=== PATIENT | female | born 1970 | race African-American/Black ===

== ENCOUNTER 2018-12-02 20:27 | Emergency (ER) | payer OTHER ==
[2018-12-02] MEDS ORDERED: IBUPROFEN 600 MG TABLET (FP) PO ONE ×2 (20:47→20:57)
[2018-12-02 20:48] VITALS: BP 136/79; PULSE 90; TEMP 98.3; BMI 34.5
--- NOTE | 2018-12-02 21:14 | PDOC ---
Documentation entered by Jesus Dailey SCRIBE, acting as scribe for Phyllis Pineda MD. Phyllis Pineda MD: This documentation has been prepared by the sAim perdue Elijah, SCRIBE, under my direction and personally reviewed by me in its entirety. I confirm that the documentation accurately reflects all work, treatment, procedures, and medical decision making performed by me. History of Present Illness - General Chief Complaint: Sore Throat Stated Complaint: L EAR/THROAT PAIN History Source: Patient Exam Limitations: No Limitations - History of Present Illness Initial Comments: 12/02/18 20:47 The patient is a 48 year old female with no reported significant PMH presenting to the ED with intermittent left ear pain that radiates down to her throat x 4 days. Patient notes that this pain is unlike any other pain she has had in the past, she took naproxen for pain yesterday, with some relief and had not taken additional. Patient also notes that she did not take anything today. +sore throat and neck pain, +hoarse voice no current allergies or environmental triggers. pt works as [employer], she sang prior to presentation. denies trauma or exertion. no swelling or palp lymph nodes. no difficulty swallowing or odynophagia/ dysphagia. Denies fever, chills, ear discharge/hearing or visual changes, chest pain, SOB, cough or congestion, additional respiratory symptoms, palpitation, dizziness, weakness, N, V, D, abdominal pain, bladder and bowel problems, leg swelling, No sick contacts or travel. No new changes in medications. Allergies: Cefazolin Social history: Lives with family. No tobacco, ETOH or drug use. 12/02/18 21:06 12/02/18 21:10 Past History - Past Medical History Allergies/Adverse Reactions: Allergies Allergy/AdvReac Type Severity Reaction Status Date / Time cefazolin [From Ancef] AdvReac Verified 12/02/18 20:40 Home Medications: Ambulatory Orders NK [No Known Home Medication] 12/02/18 Review of Systems - Review of Systems Comments:: 12/02/18 21:02 Constitutional: no fevers or chills. HEENT: +Pain in Left Ear. +sore throat. +neck pain. No change in vision or hearing. No ear discharge. No mouth pain or sores.. No difficulty swallowing. No congestion. CVS: no cp or syncope. Resp: no sob. No cough. Gastrointestinal: no abdominal pain, nausea or vomiting. MUSCULOSKELETAL: No joint pain and swelling. No neck or back pain. SKIN: no redness or skin changes, no discharge, no rash. No wounds. Hematologic: no easy bruising/bleeding. Lymph: no lymphadenopathy. NEUROLOGIC: No headache, dizziness, LOC or altered mental status. Allergic/Immunologic: no seasonal allergies All other systems reviewed and negative, or as documented in HPI. 12/02/18 21:09 12/02/18 21:29 *Physical Exam - Vital Signs Last Vital Signs Temp Pulse Resp BP Pulse Ox 98.3 F 90 14 136/79 98 12/02/18 20:28 12/02/18 20:28 12/02/18 20:28 12/02/18 20:28 12/02/18 20:28 - Physical Exam Comments: 12/02/18 21:03 General: Well appearing, awake and alert, NAD. HEENT: NCAT, PERRL, EOMI, clear conjunctiva, anicteric, moist mucus membranes, clear oropharynx. Airway patent, normal phonation. no tonsillar hypertrophy or erythema. Uvula midline. No sinus tenderness to percussion, TM clear bilaterally , no pinna tenderness to manipulation no mastoid tenderness. Neck: neck supple, FROM Resp: CTAB, normal and even respirations, no respiratory distress CVS: RRR, no murmurs, 2+ peripheral pulses throughout, no peripheral edema Abdomen: soft, NTND, no peritoneal signs. Back: nontender, normal inspection and ROM MSK: no edema, POWELL x4, ROM intact. Neuro: alert, no focal neuro deficits. Psych: calm and cooperative Skin: warm and well perfused, cap refill <2 sec, normal color, no rash 12/02/18 21:10 12/02/18 21:29 ED Treatment Course - Medications Given in the ED: ED Medications Discontinued Medications Generic Name Dose Route Start Last Admin Trade Name Freq PRN Reason Stop Dose Admin Ibuprofen 600 mg 12/02/18 20:47 12/02/18 20:59 Motrin - PO 12/02/18 20:48 600 mg ONCE ONE Administration Medical Decision Making - Medical Decision Making 12/02/18 21:11 Vital signs reviewed, wnl. no fever or systemic sx ddx. pharyngitis, strep. AOM, viral otitis media. vocal cord strain. viral infection strep test_neg, f/u culture no other systemic findings, maintaining ariway, no respiratory distress. could be vocal cord strain vs viral infection. no indication for abx ENT followup given Pt to be discharged in stable condition. Patient and family made aware of clinical impression, treatment recommendations and disposition plan, return precautions discussed (including but not limited to new or persistent/worsening symptoms, pain, fevers, or signs of infection, chest pain, respiratory distress , inability to tolerate oral intake, dehydration, syncope, or neurologic changes ). Follow up with PMD and/or ENT specialist as recommended, follow up information provided, take medications as instructed for duration of time. continue with supportive care, avoid triggers and precipitants. All questions answered to patient's satisfaction and expressed understanding and comfort with this. At the time of discharge, the patient is alert, clinically improved, tolerating po and verbalizes understanding of instructions, satisfied with the care received and felt comfortable with the plan. Patient does not suffer from an acute life-threatening medical condition at this time and is safe for outpatient follow-up. 12/02/18 21:28 *DC/Admit/Observation/Transfer Diagnosis at time of Disposition: Sore throat, Ear pain - Discharge Dispostion Disposition: HOME Condition at time of disposition: Good Decision to Admit order: No - Referrals Referrals: Gregorio Anderson MD [Staff Physician] - - Patient Instructions Printed Discharge Instructions: Sore Throat, DI for Ear Pain-Adult Additional Instructions: 1) Please follow-up with your primary care doctor in the next 1-2 days. Please call tomorrow for for any urgent issues. you are also given referral for ENT specialist for the ear and throat pain 2) You were given a copy of the tests performed today. Please bring the results with you and review them with your primary care doctor. Your laboratory results were normal, neg for strep infection. no indication for antibiotics, as your symptoms could also be viral. follow up on the throat culture. 3) If you have any worsening of symptoms or any other concerns please return to the ED immediately. Return if worsening symptoms including fevers, headache, vomiting, visual or hearing disturbances, abdominal pain, chest pain, shortness of breath, syncope, dehydration, inability to take things by mouth/vomiting, worsening neck/ear pain, altered mental status, or worsening concerning symptoms. Stay well hydrated and rest adequately. salt water gargles, lemon and ashley tea to soothe the throat. Make an appointment. If you cannot follow-up with your primary care doctor please return to the ED - Post Discharge Activity
== END 2018-12-02 21:33 | disposition home or self-care (01) ==
LOC: FER 20:27
DX: J02.9 Acute pharyngitis, unspecified (principal); H92.02 Otalgia, left ear
CPT/HCPCS: 87070; 87880; 99282-25

== ENCOUNTER 2019-05-17 19:22 | Emergency (ER) | payer OTHER ==
[2019-05-17 19:31] VITALS: BP 153/95; PULSE 77; TEMP 98.2; BMI 34.7
--- NOTE | 2019-05-17 21:32 | PDOC ---
Documentation entered by Cassandra Overton SCRIBE, acting as scribe for Kirsten Jaramillo MD. Kirsten Jaramillo MD: This documentation has been prepared by the joséeTian Joy, SCRIBE, under my direction and personally reviewed by me in its entirety. I confirm that the documentation accurately reflects all work, treatment, procedures, and medical decision making performed by me. History of Present Illness - General Chief Complaint: Respiratory Stated Complaint: COUGH X 1 WEEK History Source: Patient - History of Present Illness Initial Comments: 05/17/19 20:38 The patient is a 48 year old with no significant past medical history who presents to the ED with flu-like symptoms for x1 week. As per patient, her symptoms onset on 05/11/19 after she initially felt nauseous and had x4 episodes of diarrhea. The patient reports productive cough that is slightly yellow in color. The patient endorses that she has minimal wheezing and that the cough is worse at night and when lying down. The patient states that she feels fatigued, has subjective fever and was unable to measure her temperature. The patient adds that she had sick contact at work 2 weeks ago. No respiratory or hx of asthma. The patient denies chest pain, shortness of breath, headache and dizziness. Denies dysuria, frequency, urgency and hematuria. All systems are reviewed and negative except as noted in the HPI. Allergies: cefazolin Surgical History: cholecystectomy Past History - Past Medical History Allergies/Adverse Reactions: Allergies Allergy/AdvReac Type Severity Reaction Status Date / Time cefazolin [From Ancef] AdvReac Verified 12/02/18 20:40 Home Medications: Ambulatory Orders Hydrocodone Bit/Homatrop Me-Br [Hydrocodone-Homatropine Soln] 5 ml PO TID PRN # 60 ml MDD 15 ml 05/17/19 Cardiac Disorders: Yes (MVP) COPD: No - Psycho Social/Smoking Cessation Hx Smoking History: Never smoked Have you smoked in the past 12 months: No Number of Cigarettes Smoked Daily: 0 Information on smoking cessation initiated: No Hx Alcohol Use: No Drug/Substance Use Hx: No Review of Systems - Review of Systems Able to Perform ROS?: Yes Comments:: 05/17/19 20:39 CONSTITUTIONAL: +subjective fever, malaise, flu-like symptoms. Absent: diaphoresis, generalized weakness, loss of appetite HEENT: rhinorrhea, nasal congestion, Absent: throat pain, throat swelling, difficulty swallowing, mouth swelling, ear pain, eye pain, visual Changes CARDIOVASCULAR: Absent: chest pain, syncope, palpitations, irregular heart rate, lightheadedness , peripheral edema RESPIRATORY: +productive cough, wheezing. Absent: shortness of breath, dyspnea with exertion, orthopnea, stridor, hemoptysis GASTROINTESTINAL: +diarrhea. Absent: abdominal pain, abdominal distension, nausea, vomiting, constipation, melena, hematochezia GENITOURINARY: Absent: dysuria, frequency, urgency, hesitancy, hematuria, flank pain, genital pain MUSCULOSKELETAL: Absent: myalgia, arthralgia, joint swelling SKIN: Absent: rash, itching, pallor NEUROLOGIC: Absent: headache, focal weakness or paresthesias, dizziness, unsteady gait, seizure, mental status changes, bladder or bowel incontinence *Physical Exam - Vital Signs Last Vital Signs Temp Pulse Resp BP Pulse Ox 98.2 F 77 18 153/95 97 05/17/19 19:24 05/17/19 19:24 05/17/19 19:24 05/17/19 19:24 05/17/19 19:24 - Physical Exam 05/17/19 20:42 GENERAL: The patient is awake, alert, and fully oriented, in no acute distress. HEAD: Normal with no signs of trauma. EYES: Pupils equal, round and reactive to light, extraocular movements intact, sclera anicteric, conjunctiva clear with no pallor. ENT: +Mild erythema to oropharynx, no edema or exudates. Ears normal, nares patent. NECK: Normal range of motion, supple without lymphadenopathy, JVD, or masses. LUNGS: Breath sounds equal, clear to auscultation bilaterally. No wheeze/ crackles. HEART: Regular rate and rhythm, normal S1 and S2 without murmur or rub. ABDOMEN: Soft/nontender/nondistended. BS wnl. No guarding or rebound. No palpable masses. No hepatosplenomegaly. EXTREMITIES: Normal range of motion, no edema. No clubbing or cyanosis. No cords, erythema, or tenderness. NEUROLOGICAL: Cranial nerves II through XII grossly intact. Normal speech. PSYCH: Normal mood, normal affect. SKIN: Warm, Dry, normal turgor, no rashes or lesions noted. Medical Decision Making - Medical Decision Making as noted above, this 48-year-old woman without previous respiratory issues or other chronic medical problems presents with 1 week history of cough productive of whitish-yellow sputum with subjective fever. Patient is a non-smoker and has no history of asthma. She denies having frequent "chest colds". Exam as noted. The patient has no significant risk factors for severe bronchitis with bacterial superinfection. Clinical presentation most consistent with viral bronchitis Rapid influenza a/influenza B test sent Since the patient has described paroxysms of coughing occurring at night, keeping her awake, small (number 60 mL) prescription for Hycodan homatropine syrup to be taken 1 teaspoon up to twice a day as needed for severe cough sent to her pharmacy 05/18/19 06:15 Addendum:Influenza A/Influenza B negative Discharge - Discharge Information Problems reviewed: Yes Clinical Impression/Diagnosis: Acute bronchitis Condition: Stable Disposition: HOME - Additional Discharge Information Prescriptions: Hydrocodone Bit/Homatrop Me-Br [Hydrocodone-Homatropine Soln] 5 ml PO TID PRN # 60 ml MDD 15 ml PRN Reason: Cough - Follow up/Referral - Patient Discharge Instructions Patient Printed Discharge Instructions: DI for Acute Bronchitis Additional Instructions: rest, drink plenty of fluids consider using vaporizer in room at night hycodan syrup 1 teaspoon up to 3 X a day as needed for severe cough Do not engage in activity requiring full attention after using hycodan syrup return or see your doctor if you have persistent high fever, shortness of breath or fever - Post Discharge Activity
== END 2019-05-17 20:13 | disposition home or self-care (01) ==
LOC: FER 19:22
DX: J40 Bronchitis, not specified as acute or chronic (principal); Z88.8 Allergy status to other drugs, medicaments and biological substances
CPT/HCPCS: 87804; 99281-25

== ENCOUNTER 2021-08-20 18:55 | Emergency (ER) | payer OTHER ==
[2021-08-20 19:18] VITALS: BP 140/89; PULSE 82; TEMP 98.9; BMI 34.7
[2021-08-20] MEDS ORDERED: KETOROLAC TROMETHAMINE 30 MG/1 ML VIAL IVPUSH ONE (19:48)
[2021-08-20] MEDS ORDERED: KETOROLAC TROMETHAMINE 30 MG/1 ML VIAL ONE (19:54)
[2021-08-20 20:34] LABS: ALBUMIN 3.9 g/dl (3.4-5.0); BILIRUBIN,TOTAL 0.9 mg/dl (0.2-1); CALCIUM 9.2 mg/dl (8.5-10); CREATININE 0.7 mg/dl (0.55-1.3); TOT PROT 7.8 g/dl (6.4-8.2)
== END 2021-08-20 21:05 | disposition home or self-care (01) ==
LOC: FER 18:55
PROC: 3E0333Z Introduction of Anti-inflammatory into Peripheral Vein, Percutaneous Approach (ICD-10-PCS; principal; 2021-08-20)
DX: R07.89 Other chest pain (principal)
CPT/HCPCS: 36415; 80053; 84484; 93005; 96374; 99284-25

== ENCOUNTER 2022-06-10 00:04 | Emergency (ER) | payer OTHER ==
[2022-06-10] MEDS ORDERED: IBUPROFEN 600 MG TABLET (FP) PO ONE ×2 (00:09→00:21)
[2022-06-10 00:21] VITALS: BP 152/83; PULSE 75; RESP 16; TEMP 98.5; BMI 33.9
== END 2022-06-10 01:00 | disposition home or self-care (01) ==
LOC: FER 00:04
DX: S80.01XA Contusion of right knee, initial encounter (principal); W01.0XXA Fall on same level from slipping, tripping and stumbling without subsequent striking against object, initial encounter
CPT/HCPCS: 73560-TC-LT-FY; 73560-TC-RT-FY; 99284-25

== ENCOUNTER 2022-10-13 00:31 | Emergency (ER) | payer OTHER ==
[2022-10-13 00:38] VITALS: BP 149/89; PULSE 87; RESP 18; TEMP 98.1; BMI 33.9
[2022-10-13] MEDS ORDERED: KETOROLAC TROMETHAMINE 60 MG/2 ML VIAL ONE (00:48)
[2022-10-13] MEDS ORDERED: KETOROLAC TROMETHAMINE 60 MG/2 ML VIAL IM ONE (00:48)
== END 2022-10-13 00:56 | disposition home or self-care (01) ==
LOC: FER 00:31
PROC: 3E0233Z Introduction of Anti-inflammatory into Muscle, Percutaneous Approach (ICD-10-PCS; principal; 2022-10-13)
DX: K08.89 Other specified disorders of teeth and supporting structures (principal)
CPT/HCPCS: 99284-25

== ENCOUNTER 2022-10-14 22:37 | Emergency (ER) | payer OTHER ==
[2022-10-14 22:43] VITALS: BP 160/88; PULSE 80; RESP 16; TEMP 98; BMI 33.0
[2022-10-14] MEDS ORDERED: CLINDAMYCIN HCL 300 MG CAPSULE PO ONE (22:48)
[2022-10-14] MEDS ORDERED: CLINDAMYCIN HCL 150 MG CAPSULE (FP) ONE (22:49)
== END 2022-10-14 22:59 | disposition home or self-care (01) ==
LOC: FER 22:37
DX: K08.89 Other specified disorders of teeth and supporting structures (principal); K03.81 Cracked tooth; K05.6 Periodontal disease, unspecified
CPT/HCPCS: 99283-25

== ENCOUNTER 2024-07-02 04:27 | Emergency (ER) | payer BC, OTHER ==
[2024-07-02 04:41] VITALS: BP 141/99; PULSE 90; RESP 18; TEMP 98.4; BMI 33.0
[2024-07-02] MEDS ORDERED: KETOROLAC TROMETHAMINE 60 MG/2 ML VIAL ONE (04:47)
[2024-07-02] MEDS: KETOROLAC TROMETHAMINE 60 MG/2 ML VIAL IM ONE (04:50)
== END 2024-07-02 05:06 | disposition home or self-care (01) ==
LOC: FER 04:27
PROC: 3E0233Z Introduction of Anti-inflammatory into Muscle, Percutaneous Approach (ICD-10-PCS; principal; 2024-07-02)
DX: R60.0 Localized edema (principal); K04.7 Periapical abscess without sinus
CPT/HCPCS: 99284-25